=== PATIENT | male | born 1930 | race Caucasian/White ===

== ENCOUNTER 2016-05-07 14:06 | Inpatient (IN) | payer MEDICARE, OTHER ==
[2016-05-07] MEDS ORDERED: Polyethylene Glycol 3350 Powder 17 GM Packet PO PRN (15:35)
[2016-05-07] MEDS ORDERED: Acetaminophen 325 MG Tab PO PRN (15:35)
[2016-05-07] MEDS ORDERED: Acetaminophen/HYDROcodone 325-5 MG Tab PO PRN (15:35)
--- NOTE | 2016-05-07 15:59 | PCM.HP ---
H&P History of Present Illness - General Date of Service: 05/07/16 Admit Problem/Dx: Admission Diagnosis/Problem Admission Diagnosis/Problem Encephalopathy Source of Information: Patient, Family, Old records - History of Present Illness Initial Comments - Free Text/Narative: History of present illness: Patient admitted to swing bed today for continued therapy in anticipation of return to living at home with . Last week he developed bronchitis type illness. He was started on doxycycline Tessalon and dextromethorphan. After this he developed tremulousness in his face and jaw maybe little bit in his limbs. He was confused and had difficulty speaking. He presented to ER in [place]. He was sent on from there to [facility] for neurological evaluation. All of his testing was basically negative. No ischemic changes by MRI. 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 Notes his mental status has improved and is back to baseline. He still seemed a little bit weak with ambulation from being bedridden recently otherwise they think he's pretty close to being able to go back home. Past medical history: Coronary artery disease, glaucoma, osteoporosis, seizure disorder, depression, diabetes mellitus type 2, chronic kidney disease, pulmonary fibrosis, DO NOT RESUSCITATE. Allergies: Question dextromethorphan and Tessalon intolerance. GatiFloxin, penicillin, lisinopril. Medications: Loratadine, albuterol, Flonase, Keppra, Zocor, Fosamax, metformin, Cozaar, glaucoma eyedrops, Zoloft, Prozac, aspirin, Ativan. Social history: Nonsmoker, lives with , daughter also in town. Review of systems: He has no complaints currently, no fever no vomiting no headache no chest pain no weakness or numbness no speech difficulty, he's chronically hard of hearing, no abdominal pain, states she's passing stools and urine normally. Vital signs: Blood pressure 140/68 temperature 36.3 pulse 87 alert oriented hard of hearing male no acute distress. He can name the current president month and day. He has difficulty with the year. Cranial nerves II through XII aren't intact. Heart regular rate and rhythm rather frequent dropped beats. Lungs are clear to auscultation. Abdomen soft nontender. Extremities warm well perfused. No peripheral edema. Five out of five strength all extremities. Assessment and plan: Trembling, confusion, speech difficulty. No ischemic changes by MRI. A brief transient TIA ischemic event without tissue damage would be in differential, atypical seizure or post ictal changes would be in differential, idiopathic encephalitis related to medication or virus would be in differential, atypical dystonic-type drug reaction would be in differential, delirium related to some chronic dementia would be in differential. Family states she's currently completely at his neurologic baseline. Admit for physical and occupational therapy with plan on return to home environment. Continue Keppra seizure prophylaxis. Continue home cardiac medicines for vascular prophylaxis. DVT prophylaxis not indicated patient who is ambulating near his baseline. - Related Data Allergies/Adverse Reactions: Allergies Allergy/AdvReac Type Severity Reaction Status Date / Time dextromethorphan Allergy Other Verified 05/07/16 15:45 gatifloxacin Allergy Other Verified 05/07/16 15:45 guaifenesin Allergy Other Verified 05/07/16 15:45 lisinopril Allergy Other Verified 05/07/16 15:45 Penicillins Allergy Other Verified 05/07/16 15:45 Home Medications: Home Meds Albuterol Sulfate [Ventolin Hfa] 1 - 2 puff IH Q4H PRN 05/07/16 [History] Alendronate [Fosamax] 70 mg PO Q7D@0600 05/07/16 [History] Aspirin 325 mg PO DAILY 05/07/16 [History] Bimatoprost [LUMIGAN 0.01% Ophth Soln] 1 drop EYEBOTH BEDTIME 05/07/16 [History] Brinzolamide [Azopt 1% Ophth Susp] 1 drop EYELF BID 05/07/16 [History] Brinzolamide [Azopt 1% Ophth Susp] 1 drop EYERT TID 05/07/16 [History] Finasteride 5 mg PO DAILY 05/07/16 [History] Fluticasone Propionate [Flonase] 2 sprays NASBOTH DAILY 05/07/16 [History] LORazepam 0.5 mg PO DAILY PRN 05/07/16 [History] Loratadine 10 mg PO DAILY 05/07/16 [History] Losartan [Cozaar] 25 mg PO DAILY 05/07/16 [History] Sertraline [Zoloft] 100 mg PO DAILY 05/07/16 [History] Simvastatin [Zocor] 10 mg PO WITHDINNER 05/07/16 [History] levETIRAcetam [Levetiracetam] 750 mg PO BID 05/07/16 [History] metFORMIN HCl [Metformin HCl ER] 500 mg PO DAILY 05/07/16 [History] Past Medical History HEENT History: Reports: Glaucoma Cardiovascular History: Reports: Afib, CAD, High cholesterol, Hypertension, Stents Other Respiratory History: chronic calcified pulmonary granulomata Genitourinary History: Reports: BPH, Renal disease Neurological History: Reports: Seizure Psychiatric History: Reports: Dementia, Depression Endocrine/Metabolic History: Reports: Diabetes, type II - Infectious Disease History Infectious Disease History: Reports: None - Past Surgical History Cardiovascular Surgical History: Reports: Coronary artery stent Social & Family History - Family History Family Medical History: Noncontributory - Tobacco Use Smoking Status *Q: Never Smoker Second Hand Smoke Exposure: No - Caffeine Use Caffeine Use: Reports: Coffee - Recreational Drug Use Recreational Drug Use: No H&P Review of Systems - Review of Systems: Review Of Systems: See Below Exam - Exam Exam: See Below - Vital Signs Vital Signs: Last Vital Signs Temp 36.9 C 05/07/16 14:12 Pulse 119 H 05/07/16 14:12 Resp 20 05/07/16 14:12 BP 165/72 H 05/07/16 14:12 Pulse Ox 98 05/07/16 14:12 Weight: 74.843 kg *Q Meaningful Use (ADM) - VTE *Q VTE Criteria *Q: - Stroke *Q Stroke Criteria *Q: - AMI *Q AMI Criteria *Q: Problem List Initiated/Reviewed/Updated: Yes Orders Last 24hrs: Active Orders 24 hr Category Date Time Status Admission Status [Patient Status] [ADT] Routine ADT 05/07/16 14:06 Active Patient Status [ADT] Routine ADT 05/07/16 15:35 Ordered Ambulate [RC] ASDIRECTED Care 05/07/16 15:35 Ordered Oxygen Therapy [RC] PRN Care 05/07/16 15:35 Ordered Up With Assistance [RC] ASDIRECTED Care 05/07/16 15:35 Ordered VTE/DVT Education [RC] PER UNIT ROUTINE Care 05/07/16 15:35 Ordered Vital Signs [RC] PER UNIT ROUTINE Care 05/07/16 15:35 Ordered Consult to Oncology Social Work [CONS] Routine Cons 05/07/16 15:35 Ordered Consult to Speech Language Pathology [[employer]OR Evaluation Cons 05/07/16 12:28 Active and Treatment] [CONS] Routine OT Evaluation and Treatment [CONS] Routine Cons 05/07/16 12:27 Active PT Evaluation and Treatment [CONS] Routine Cons 05/07/16 12:27 Active Regular Diet [DIET] Diet 05/07/16 Dinner Active Regular Diet [DIET] Diet 05/07/16 Dinner Ordered CULTURE SPUTUM + SMEAR [RM] Routine Lab 05/07/16 15:41 Uncollected Acetaminophen [Tylenol] Med 05/07/16 15:35 Ordered 650 mg PO Q4H PRN Acetaminophen/HYDROcodone [[place] 325-5 MG] Med 05/07/16 15:35 Ordered 1 tab PO Q4H PRN Alendronate [Fosamax] Med 05/14/16 06:00 Ordered 70 mg PO Q7D@0600 Aspirin [Aspirin] Med 05/08/16 08:00 Ordered 325 mg PO DAILY Bimatoprost [LUMIGAN 0.01% Ophth Soln] Med 05/07/16 20:00 Ordered 1 drop EYEBOTH BEDTIME Brinzolamide [Azopt 1% Ophth Susp] Med 05/07/16 20:00 Ordered 1 drop EYELF BID Brinzolamide [Azopt 1% Ophth Susp] Med 05/07/16 20:00 Ordered 1 drop EYERT TID Finasteride [Proscar] Med 05/08/16 08:00 Ordered 5 mg PO DAILY Fluticasone Propionate [Flonase] Med 05/08/16 08:00 Ordered 2 sprays NASBOTH DAILY LORazepam [Ativan] Med 05/07/16 15:40 Ordered 0.5 mg PO DAILY PRN Loratadine [Claritin] Med 05/08/16 08:00 Ordered 10 mg PO DAILY Losartan [Cozaar] Med 05/08/16 08:00 Ordered 25 mg PO DAILY Polyethylene Glycol 3350 [MiraLAX] Med 05/07/16 15:35 Ordered 17 gm PO DAILY PRN Sertraline [Zoloft] Med 05/08/16 08:00 Ordered 100 mg PO DAILY Simvastatin [Zocor] Med 05/07/16 18:00 Ordered 10 mg PO WITHDINNER levETIRAcetam [Levetiracetam] Med 05/07/16 20:00 Ordered 750 mg PO BID metFORMIN HCl [Metformin HCl ER] Med 05/08/16 08:00 Ordered 500 mg PO DAILY Resuscitation Status Routine Resus Stat 05/07/16 15:35 Ordered Medication Orders Acetaminophen (Tylenol) 650 mg PO Q4H PRN PRN Reason: Pain (Mild 1-3)/fever Acetaminophen/Hydrocodone Bitart ([place] 325-5 Mg) 1 tab PO Q4H PRN PRN Reason: Pain (moderate 4-6) Alendronate Sodium (Fosamax) 70 mg PO Q7D@0600 [facility] Finasteride (Proscar) 5 mg PO DAILY [facility] Fluticasone Propionate (Flonase) gm NASBOTH DAILY [facility] Loratadine (Claritin) 10 mg PO DAILY [facility] Lorazepam (Ativan) 0.5 mg PO DAILY PRN PRN Reason: Anxiety Losartan Potassium (Cozaar) 25 mg PO DAILY [facility] Non-Formulary Medication (Aspirin [Aspirin]) 325 mg PO DAILY [facility] Non-Formulary Medication (Bimatoprost [Lumigan 0.01% Ophth Soln]) 1 drop EYEBOTH BEDTIME [facility] Non-Formulary Medication (Brinzolamide [Azopt 1% Ophth Susp]) 1 drop EYELF BID [facility] Non-Formulary Medication (Brinzolamide [Azopt 1% Ophth Susp]) 1 drop EYERT TID [facility] Non-Formulary Medication (Levetiracetam [Levetiracetam]) 750 mg PO BID [facility] Non-Formulary Medication (Metformin Hcl [Metformin Hcl Er]) 500 mg PO DAILY [facility] Polyethylene Glycol (Miralax) 17 gm PO DAILY PRN PRN Reason: Constipation Sertraline HCl (Zoloft) 100 mg PO DAILY [facility] Simvastatin (Zocor) 10 mg PO WITHKADI [facility]
[2016-05-07] MEDS: Simvastatin 10 MG Tab PO SCH (18:05)
[2016-05-07] MEDS: metFORMIN 500 MG Tab PO SCH (18:05)
[2016-05-07] MEDS: BRINZOLAMIDE EYERT SCH (20:41)
[2016-05-07] MEDS: levETIRAcetam 500 MG Tab PO SCH (20:41)
[2016-05-07] MEDS: LATANOPROST 0.005% EYEBOTH SCH (20:41)
[2016-05-07] MEDS: BRINZOLAMIDE EYELF SCH (20:51)
[2016-05-08] MEDS: Finasteride 5 MG Tab PO SCH (10:46)
[2016-05-08] MEDS: BRINZOLAMIDE EYERT SCH ×3 (10:46→20:11)
[2016-05-08] MEDS: Loratadine 10 MG Tab PO SCH (10:46)
[2016-05-08] MEDS: BRINZOLAMIDE EYELF SCH ×2 (10:46→20:10)
[2016-05-08] MEDS: FLUTICASONE PROPIONATE NASBOTH SCH (10:47)
[2016-05-08] MEDS: Sertraline 100 MG Tab PO SCH (10:47)
[2016-05-08] MEDS: levETIRAcetam 500 MG Tab PO SCH ×2 (10:47→20:09)
[2016-05-08] MEDS: metFORMIN 500 MG Tab PO SCH ×2 (10:47→17:53)
[2016-05-08] MEDS: Aspirin 325 MG Tab.EC PO SCH (10:47)
[2016-05-08] MEDS: Losartan 25 MG Tab PO SCH (10:47)
[2016-05-08] MEDS: Simvastatin 10 MG Tab PO SCH (17:53)
[2016-05-08] MEDS: LATANOPROST 0.005% EYEBOTH SCH (20:12)
[2016-05-09] MEDS: BRINZOLAMIDE EYERT SCH ×3 (08:08→19:46)
[2016-05-09] MEDS: Loratadine 10 MG Tab PO SCH (08:08)
[2016-05-09] MEDS: BRINZOLAMIDE EYELF SCH ×2 (08:08→19:46)
[2016-05-09] MEDS: Losartan 25 MG Tab PO SCH (08:08)
[2016-05-09] MEDS: Finasteride 5 MG Tab PO SCH (08:09)
[2016-05-09] MEDS: metFORMIN 500 MG Tab PO SCH ×2 (08:09→17:27)
[2016-05-09] MEDS: levETIRAcetam 500 MG Tab PO SCH ×2 (08:10→19:46)
[2016-05-09] MEDS: Sertraline 100 MG Tab PO SCH (08:10)
[2016-05-09] MEDS: Aspirin 325 MG Tab.EC PO SCH (08:10)
[2016-05-09] MEDS: FLUTICASONE PROPIONATE NASBOTH SCH (08:10)
[2016-05-09] MEDS: Simvastatin 10 MG Tab PO SCH (17:27)
[2016-05-09] MEDS: LATANOPROST 0.005% EYEBOTH SCH (19:49)
[2016-05-10] MEDS: FLUTICASONE PROPIONATE NASBOTH SCH (07:38)
[2016-05-10] MEDS: BRINZOLAMIDE EYELF SCH ×2 (07:39→19:19)
[2016-05-10] MEDS: BRINZOLAMIDE EYERT SCH ×3 (07:40→19:19)
[2016-05-10] MEDS: levETIRAcetam 500 MG Tab PO SCH ×2 (07:41→19:21)
[2016-05-10] MEDS: Losartan 25 MG Tab PO SCH (07:41)
[2016-05-10] MEDS: Loratadine 10 MG Tab PO SCH (07:42)
[2016-05-10] MEDS: Aspirin 325 MG Tab.EC PO SCH (07:42)
[2016-05-10] MEDS: Sertraline 100 MG Tab PO SCH (07:42)
[2016-05-10] MEDS: Finasteride 5 MG Tab PO SCH (07:42)
[2016-05-10] MEDS: metFORMIN 500 MG Tab PO SCH ×2 (07:42→17:33)
[2016-05-10] MEDS: LORazepam 0.5 MG Tab PO PRN (08:04)
[2016-05-10] MEDS: Simvastatin 10 MG Tab PO SCH (17:33)
[2016-05-10] MEDS: LATANOPROST 0.005% EYEBOTH SCH (19:23)
[2016-05-11] MEDS: metFORMIN 500 MG Tab PO SCH ×2 (09:45→17:32)
[2016-05-11] MEDS: FLUTICASONE PROPIONATE NASBOTH SCH (09:45)
[2016-05-11] MEDS: BRINZOLAMIDE EYERT SCH ×3 (09:45→19:59)
[2016-05-11] MEDS: Sertraline 100 MG Tab PO SCH (09:45)
[2016-05-11] MEDS: levETIRAcetam 500 MG Tab PO SCH ×2 (09:46→20:00)
[2016-05-11] MEDS: LORazepam 0.5 MG Tab PO PRN (09:46)
[2016-05-11] MEDS: Finasteride 5 MG Tab PO SCH (09:47)
[2016-05-11] MEDS: Aspirin 325 MG Tab.EC PO SCH (09:47)
[2016-05-11] MEDS: Losartan 25 MG Tab PO SCH (09:47)
[2016-05-11] MEDS: Loratadine 10 MG Tab PO SCH (09:47)
[2016-05-11] MEDS: BRINZOLAMIDE EYELF SCH ×2 (09:47→20:00)
[2016-05-11] MEDS: Simvastatin 10 MG Tab PO SCH (17:32)
[2016-05-11] MEDS: LATANOPROST 0.005% EYEBOTH SCH (20:01)
[2016-05-12] MEDS: FLUTICASONE PROPIONATE NASBOTH SCH (08:39)
[2016-05-12] MEDS: BRINZOLAMIDE EYERT SCH ×3 (08:39→20:20)
[2016-05-12] MEDS: Loratadine 10 MG Tab PO SCH (08:40)
[2016-05-12] MEDS: Aspirin 325 MG Tab.EC PO SCH (08:40)
[2016-05-12] MEDS: levETIRAcetam 500 MG Tab PO SCH ×2 (08:40→20:21)
[2016-05-12] MEDS: Losartan 25 MG Tab PO SCH (08:40)
[2016-05-12] MEDS: Sertraline 100 MG Tab PO SCH (08:41)
[2016-05-12] MEDS: Finasteride 5 MG Tab PO SCH (08:41)
[2016-05-12] MEDS: metFORMIN 500 MG Tab PO SCH ×2 (08:41→17:42)
[2016-05-12] MEDS: BRINZOLAMIDE EYELF SCH ×2 (08:42→20:20)
[2016-05-12] MEDS: Simvastatin 10 MG Tab PO SCH (17:42)
[2016-05-12] MEDS: LATANOPROST 0.005% EYEBOTH SCH (20:20)
[2016-05-13 06:08] VITALS: BP 132/78
[2016-05-13] MEDS: metFORMIN 500 MG Tab PO SCH (08:56)
[2016-05-13] MEDS: BRINZOLAMIDE EYELF SCH (08:56)
[2016-05-13] MEDS: BRINZOLAMIDE EYERT SCH ×2 (08:56→13:10)
[2016-05-13] MEDS: FLUTICASONE PROPIONATE NASBOTH SCH (08:56)
[2016-05-13] MEDS: Finasteride 5 MG Tab PO SCH (08:57)
[2016-05-13] MEDS: Loratadine 10 MG Tab PO SCH (08:57)
[2016-05-13] MEDS: levETIRAcetam 500 MG Tab PO SCH (08:57)
[2016-05-13] MEDS: Losartan 25 MG Tab PO SCH (08:57)
[2016-05-13] MEDS: Aspirin 325 MG Tab.EC PO SCH (08:58)
[2016-05-13] MEDS: Sertraline 100 MG Tab PO SCH (08:58)
--- NOTE | 2016-05-13 09:54 | PCM.DCSUM1 ---
Discharge Summary - Discharge Data Discharge Date: 05/13/16 Discharge Disposition: Home, Self-Care 01 Condition: Fair - Patient Summary/Data Consults: Consultations 05/07/16 12:27 OT Evaluation and Treatment [CONS] Routine PT Evaluation and Treatment [CONS] Routine 05/07/16 12:28 Consult to Speech Language Pathology [FOIL SPINNER Evaluation and Treatment] [CONS] Routine 05/07/16 15:35 Consult to Taker Off Drying Kiln [CONS] Routine - Discharge Plan Home Medications: Home Meds Albuterol Sulfate [Ventolin Hfa] 1 - 2 puff IH Q4H PRN 05/07/16 [History] Alendronate [Fosamax] 70 mg PO Q7D@0600 05/07/16 [History] Aspirin 325 mg PO DAILY 05/07/16 [History] Bimatoprost [LUMIGAN 0.01% Ophth Soln] 1 drop EYEBOTH BEDTIME 05/07/16 [History] Brinzolamide [Azopt 1% Ophth Susp] 1 drop EYELF BID 05/07/16 [History] Brinzolamide [Azopt 1% Ophth Susp] 1 drop EYERT TID 05/07/16 [History] Finasteride 5 mg PO DAILY 05/07/16 [History] Fluticasone Propionate [Flonase] 2 sprays NASBOTH DAILY 05/07/16 [History] LORazepam 0.5 mg PO DAILY PRN 05/07/16 [History] Loratadine 10 mg PO DAILY 05/07/16 [History] Losartan [Cozaar] 25 mg PO DAILY 05/07/16 [History] Sertraline [Zoloft] 100 mg PO DAILY 05/07/16 [History] Simvastatin [Zocor] 10 mg PO WITHDINNER 05/07/16 [History] levETIRAcetam [Levetiracetam] 750 mg PO BID 05/07/16 [History] metFORMIN HCl [Metformin HCl ER] 500 mg PO DAILY 05/07/16 [History] Alendronate [Fosamax] 70 mg PO Q7D@0600 tablet 05/13/16 [Rx] Polyethylene Glycol 3350 [MiraLAX] 17 gm PO DAILY PRN #0 packet 05/13/16 [Rx] - Discharge Summary/Plan Comment DC Time >30 min.: No Discharge Summary/Plan Comment: Patient was admitted less than a week ago for swing bed admission and status post hosp at [facility] for encephalopathy NOS, possible adverse drug reaction to antitussives. His neurologic symptoms had resolved by discharge there. They recommended some physical therapy here so could return to home environment. Family and PT feels he is completely back at baseline. Still has some mild confusion likely from baseline dementia and being hard of hearing. No other issues identified here. Return home under care of and daughter who lives nearby. Follow-up with primary next week. Resume previous home medications. Follow-up with neurology when necessary given past seizure and memory issues. - Patient Data Vitals - Most Recent: Last Vital Signs Temp 36.4 C 05/13/16 06:00 Pulse 88 05/13/16 06:00 Resp 18 05/13/16 06:00 BP 132/78 05/13/16 08:57 Pulse Ox 98 05/13/16 06:00 Weight - Most Recent: 74.843 kg Med Orders - Current: Current Medications Acetaminophen (Tylenol) 650 mg PO Q4H PRN PRN Reason: Pain (Mild 1-3)/fever Acetaminophen/Hydrocodone Bitart ([place] 325-5 Mg) 1 tab PO Q4H PRN PRN Reason: Pain (moderate 4-6) Alendronate Sodium (Fosamax) 70 mg PO Q7D@0600 [facility] Aspirin (Ecotrin) 325 mg PO DAILY [facility] Last Admin: 05/13/16 08:58 Dose: 325 mg Finasteride (Proscar) 5 mg PO DAILY [facility] Last Admin: 05/13/16 08:57 Dose: 5 mg Fluticasone Propionate (Flonase) 0 gm NASBOTH DAILY [facility] Last Admin: 05/13/16 08:56 Dose: 2 spray Latanoprost (Xalatan 0.005% Ophth Soln) 0 ml EYEBOTH BEDTIME [facility] Last Admin: 05/12/16 20:20 Dose: 1 drop Levetiracetam (Keppra) 750 mg PO BID [facility] Last Admin: 05/13/16 08:57 Dose: 750 mg Loratadine (Claritin) 10 mg PO DAILY [facility] Last Admin: 05/13/16 08:57 Dose: 10 mg Lorazepam (Ativan) 0.5 mg PO DAILY PRN PRN Reason: Anxiety Last Admin: 05/11/16 09:46 Dose: 0.5 mg Losartan Potassium (Cozaar) 25 mg PO DAILY [facility] Last Admin: 05/13/16 08:57 Dose: 25 mg Metformin HCl (Glucophage) 250 mg PO BIDMEALS [facility] Last Admin: 05/13/16 08:56 Dose: 250 mg Brinzolamide [Azopt 1% Ophth Susp] 1 Drop *Own Med* 1 drop EYELF BID [facility] Last Admin: 05/13/16 08:56 Dose: 1 drop Brinzolamide [Azopt 1% Ophth Susp] 1 Drop *Own Med* 1 drop EYERT TID [facility] Last Admin: 05/13/16 08:56 Dose: 1 drop Polyethylene Glycol (Miralax) 17 gm PO DAILY PRN PRN Reason: Constipation Sertraline HCl (Zoloft) 100 mg PO DAILY [facility] Last Admin: 05/13/16 08:58 Dose: 100 mg Simvastatin (Zocor) 10 mg PO WITHDINNER [facility] Last Admin: 05/12/16 17:42 Dose: 10 mg *Q Meaningful Use (DIS) - VTE *Q VTE Criteria *Q: - Stroke *Q Stroke Criteria *Q: - AMI *Q AMI Criteria *Q:
[2016-05-14] MEDS ORDERED: Alendronate 70 MG Tab PO SCH (06:00)
== END 2016-05-13 15:30 | disposition home or self-care (01) | DRG 72 ==
LOC: VM.MS 14:06
PROVIDERS: ADMIT Family Medicine; ATTEND Family Medicine
DX: G93.40 Encephalopathy, unspecified (principal); Z66 Do not resuscitate; I25.10 Atherosclerotic heart disease of native coronary artery without angina pectoris; H40.9 Unspecified glaucoma; M81.0 Age-related osteoporosis without current pathological fracture; G40.909 Epilepsy, unspecified, not intractable, without status epilepticus; F32.9 Major depressive disorder, single episode, unspecified; Z79.84 Long term (current) use of oral hypoglycemic drugs; Z88.0 Allergy status to penicillin; Z88.8 Allergy status to other drugs, medicaments and biological substances; E11.22 Type 2 diabetes mellitus with diabetic chronic kidney disease; N18.9 Chronic kidney disease, unspecified; J84.10 Pulmonary fibrosis, unspecified; H91.90 Unspecified hearing loss, unspecified ear; Z95.5 Presence of coronary angioplasty implant and graft; N40.0 Benign prostatic hyperplasia without lower urinary tract symptoms; F03.90 Unspecified dementia, unspecified severity, without behavioral disturbance, psychotic disturbance, mood disturbance, and anxiety
CPT/HCPCS: 87205; 97110-GP; 97116-GP; 97161-GP; 97165-GO; 97530-GP; A9270-GY

== ENCOUNTER 2016-10-31 00:01 | Emergency (ER) | payer MEDICARE, OTHER ==
--- NOTE | 2016-10-31 00:54 | EDM.PDOC ---
ED HPI GENERAL MEDICAL PROBLEM - General Chief Complaint: Genitourinary Problem Stated Complaint: Keita catheter not draining Time Seen by Provider: 10/31/16 00:05 Source of Information: Reports: EMS, Correction Records History Limitations: Reports: Altered Mental Status - History of Present Illness INITIAL COMMENTS - FREE TEXT/NARRATIVE: Patient here for non draining keita catheter. long-term states that they have orders not to touch the catheter from urology. Onset: Today, Sudden Location: Reports: Abdomen Severity: Moderate - Related Data Allergies Allergy/AdvReac Type Severity Reaction Status Date / Time dextromethorphan Allergy Other Verified 05/07/16 15:45 gatifloxacin Allergy Other Verified 05/07/16 15:45 guaifenesin Allergy Other Verified 05/07/16 15:45 lisinopril Allergy Other Verified 05/07/16 15:45 Penicillins Allergy Other Verified 05/07/16 15:45 Home Meds: Home Meds Albuterol Sulfate [Ventolin Hfa] 1 - 2 puff IH Q4H PRN 05/07/16 [History] Alendronate [Fosamax] 70 mg PO Q7D@0600 05/07/16 [History] Aspirin 325 mg PO DAILY 05/07/16 [History] Bimatoprost [LUMIGAN 0.01% Ophth Soln] 1 drop EYEBOTH BEDTIME 05/07/16 [History] Brinzolamide [Azopt 1% Ophth Susp] 1 drop EYELF BID 05/07/16 [History] Brinzolamide [Azopt 1% Ophth Susp] 1 drop EYERT TID 05/07/16 [History] Finasteride 5 mg PO DAILY 05/07/16 [History] Fluticasone Propionate [Flonase] 2 sprays NASBOTH DAILY 05/07/16 [History] LORazepam 0.5 mg PO DAILY PRN 05/07/16 [History] Loratadine 10 mg PO DAILY 05/07/16 [History] Losartan [Cozaar] 25 mg PO DAILY 05/07/16 [History] Sertraline [Zoloft] 100 mg PO DAILY 05/07/16 [History] Simvastatin [Zocor] 10 mg PO WITHDINNER 05/07/16 [History] levETIRAcetam [Levetiracetam] 750 mg PO BID 05/07/16 [History] metFORMIN HCl [Metformin HCl ER] 500 mg PO DAILY 05/07/16 [History] Alendronate [Fosamax] 70 mg PO Q7D@0600 tablet 05/13/16 [Rx] Polyethylene Glycol 3350 [MiraLAX] 17 gm PO DAILY PRN #0 packet 05/13/16 [Rx] Past Medical History HEENT History: Reports: Glaucoma Cardiovascular History: Reports: Afib, CAD, High Cholesterol, Hypertension, Stents Other Respiratory History: chronic calcified pulmonary granulomata Genitourinary History: Reports: BPH, Renal Disease Neurological History: Reports: Seizure Psychiatric History: Reports: Dementia, Depression Endocrine/Metabolic History: Reports: Diabetes, Type II - Infectious Disease History Infectious Disease History: Reports: None - Past Surgical History Cardiovascular Surgical History: Reports: Coronary Artery Stent Social & Family History - Family History Family Medical History: Noncontributory - Tobacco Use Smoking Status *Q: Never Smoker Second Hand Smoke Exposure: No - Caffeine Use Caffeine Use: Reports: Coffee - Recreational Drug Use Recreational Drug Use: No ED ROS GENERAL - Review of Systems Review Of Systems: Unable To Obtain ED EXAM, RENAL/ - Physical Exam Exam: See Below Exam Limited By: Altered Mental Status (dementia) General Appearance: Alert, WD/WN, Moderate Distress Eye Exam: Bilateral Eye: EOMI Respiratory/Chest: No Respiratory Distress, Lungs Clear, Normal Breath Sounds, No Accessory Muscle Use Cardiovascular: Normal Peripheral Pulses, Regular Rate, Rhythm GI/Abdominal: Rigid, Tender (lower mid abdomen/pelvis region), Abnormal Bowel Sounds (hypoactive) Extremities: Normal Inspection, Normal Range of Motion, Normal Capillary Refill Neurological: Alert Departure - Departure Time of Disposition: 01:00 Disposition: DC/Tfer to [facility] 03 Condition: Good Clinical Impression: Hematuria, Complication, blocked Keita catheter - Discharge Information Instructions: Keita Catheter Care, Adult, [id number] Forms: ED Department Discharge Additional Instructions: His catheter does need to be flushed every 12 hours to prevent blood clots from clogging the keita catheter. Please do this or this will continue to be problematic. Attend his follow up appointments as scheduled. Call with any questions or concerns.
[2016-10-31 03:16] VITALS: BP 143/75
== END 2016-10-31 01:10 ==
LOC: VM.ED 00:01
DX: T83.098A Other mechanical complication of other urinary catheter, initial encounter (principal); R31.9 Hematuria, unspecified; I48.91 Unspecified atrial fibrillation; I25.10 Atherosclerotic heart disease of native coronary artery without angina pectoris; F03.90 Unspecified dementia, unspecified severity, without behavioral disturbance, psychotic disturbance, mood disturbance, and anxiety; E78.00 Pure hypercholesterolemia, unspecified; E11.9 Type 2 diabetes mellitus without complications; F32.9 Major depressive disorder, single episode, unspecified; I10 Essential (primary) hypertension; Z88.1 Allergy status to other antibiotic agents; Z88.0 Allergy status to penicillin; Z88.8 Allergy status to other drugs, medicaments and biological substances; Z79.82 Long term (current) use of aspirin; Z79.899 Other long term (current) drug therapy; Z79.84 Long term (current) use of oral hypoglycemic drugs; Z95.5 Presence of coronary angioplasty implant and graft
CPT/HCPCS: 51700; 51798; 99284-GF; 99285

== ENCOUNTER 2016-11-09 03:21 | Emergency (ER) | payer MEDICARE, OTHER ==
[2016-11-09] MEDS ORDERED: Diazepam 5 MG Tab PO ONE (03:33)
[2016-11-09 04:35] VITALS: BP 149/92
[2016-11-09 04:37] LABS: CHLORIDE,CL 107 mmol/L (98-107); SODIUM,NA 141 mmol/L (136-145)
--- NOTE | 2016-11-09 05:15 | ER ---
Date of Service: 11/09/2016 SUBJECTIVE: Scot presents to the emergency room with complaints of cough and dyspnea. The patient states that he has been experiencing cough, fever and chest congestion for approximately the past 3 days. The patient states that his son recently flew here from [place] and then states that he has been ill as well with similar symptoms. He states that he has been experiencing again this cough and chest congestion. He states that he has also been experiencing increased dyspnea and work of breathing over the past 12 to 24 hours. The patient states that the cough is nonproductive. 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 He does complain of some lower chest discomfort, but states that the discomfort is worse with deep breathing. PAST MEDICAL HISTORY: Denies. MEDICATIONS: Cetirizine. ALLERGIES: NKDA. REVIEW OF SYSTEMS: General: Positive for fever and chills. HEENT: Positive for sinus congestion. Denies any sore throat. Respiratory: Positive for respirophasic chest discomfort, dyspnea and increased work of breathing. Cardiac: Denies any substernal chest pain. GI: No nausea, vomiting or diarrhea. No melena, hematochezia or hematemesis. : Denies any dysuria. Musculoskeletal: No myalgias or arthralgias. Neurologic: No fainting, blackouts or lightheadedness. PHYSICAL EXAMINATION: General: This is an 86-year-old male patient, who is in moderate amount of respiratory distress. Vital Signs: Initially, blood pressure is 109/51, heart rate 123, temperature is 38.4, O2 saturation is 86% on room air, respiratory rate is 24. Skin: Warm, pink, and dry. HEENT: Head is normocephalic, atraumatic. Eyes, PERRLA. Extraocular movements intact. Nose, he does have significant amount of sinus congestion. Ears, TMs are clear. Mouth, oral mucosa is dry. No erythema or exudate noted in the hypopharynx. Neck: Supple without masses. There is no lymphadenopathy. Lungs: Diminished throughout. Heart: Regular rate and rhythm. Abdomen: Soft and nontender. There is no hepatosplenomegaly noted. There are no masses noted. Extremities: Without edema. Neurologic: The patient is alert, oriented and answers all questions appropriately. His speech is fluent. His gait is within normal limits. LABORATORY DATA: WBC 6.0, hemoglobin 14.4, platelets are 148. Coags: PT is 11.1, INR is 1.0. D-dimer is positive at 1.087. ABG shows a pH of 7.366, pCO2 of 38, pO2 of 53, bicarb 22. Chemistry: Sodium is 141, potassium is 3.9, chloride is 105, bicarb is 27, BUN is 24, creatinine is 1.4, creatinine clearance is 41.09. GFR is 48. Glucose is 155, lactic acid 4.1, calcium is 8.5, corrected calcium is 8.98, total bilirubin is 1.1, AST is 53, ALT is 32, alkaline phosphatase is 82, CK is 81, CK-MB is 0.8. Troponin is less than 0.017. C-reactive protein is 2.4. ProBNP is within normal range at 329. Total protein is 8.2. IMAGING STUDIES: A 12-lead EKG shows a sinus rhythm without any acute ST or T- wave changes. Chest x-ray revealed what appeared to be the start of a right middle lobe infiltrate. I subsequently did do a CT angiogram of the patient's chest due to his positive D-dimer and respirophasic chest discomfort and hypoxia and was found not to have any acute pulmonary embolism. EMERGENCY ROOM COURSE: IV access was established. The patient was given DuoNeb breathing treatment and IV access was established. He was given approximately at 1500 mL of fluid prior to admission. He was given Solu-Medrol 125 mg IV. He was given Rocephin 2 g IV and azithromycin 500 mg IV in the ER. He was complaining of some nausea and was given Zofran 4 mg IV as well. At time of admission, the patient stated that he was feeling much improved. He remained stable under my care in the emergency room. ASSESSMENT: Community-acquired pneumonia. PLAN: The patient will be admitted on observation status. We will repeat his lactic acid and blood gases. We will also trend his troponin. We will continue with IV fluids at 250 an hour as he does appear to be significantly dehydrated. The patient identifies himself as a code level 1 and does wish to be intubated in the event that he experiences respiratory failure. All questions were answered. MWK: 11/09/2016 04:25:19 MODL: 11/09/2016 05:09:35 /[id number]
--- NOTE | 2016-11-09 08:14 | ER ---
Date of Service: 11/09/2016 SUBJECTIVE: The staff states that the patient has been experiencing involuntary movements that they think is secondary to seizure activity. manager call physician was consulted and the patient was subsequently sent to the emergency room for evaluation and treatment. The staff states that the patient has been experiencing intermittent jerking motions to both the upper and lower extremities. He has been followed by Neurology and has been admitted to the half-way for recurrent complex partial seizure activity. He is currently on Keppra. The staff at the half-way states that he has always been conscious during this involuntary movement. He has not been experiencing any fever or chills. Staff states that he has not had any recent head trauma. PAST MEDICAL HISTORY: 1. Complex partial seizure disorder. 2. Coronary artery disease. 3. Status post angioplasty and coronary artery stenting. 4. History of atrial fibrillation. 5. Dyslipidemia. 6. Hypertension. 7. Pulmonary fibrosis. 8. BPH. 9. Chronic kidney disease. 10.Osteoporosis. 11.Type 2 diabetes mellitus. 12.Depression. 13.Dementia. 14.Glaucoma. 15.Parkinson disease. 16.Osteoporosis. MEDICATIONS: 1. Carvedilol. 2. Simvastatin. 3. Metformin. 4. Keppra. 5. Zoloft. 6. Flonase. 7. Finasteride. 8. Cipro. 9. Carbidopa/levodopa. 10.Bisacodyl. 11.Azopt. 12.Lumigan. 13.Aspirin. 14.Fosamax. ALLERGIES: To dextromethorphan, gatifloxacin, lisinopril, and penicillin. REVIEW OF SYSTEMS: Denies any fever, chills, head trauma, nausea, vomiting, diarrhea, chest pain, or shortness of breath. Again complains only of intermittent upper and lower extremity jerking. PHYSICAL EXAMINATION: General: This is an 86-year-old male patient, who is in no acute distress. Vital Signs: Blood pressure initially 161/92, recheck is 149/92, heart rate is 82, temp is 36.6, respiratory rate 18, O2 saturations 96%. Skin: Warm, pink, and dry. HEENT: Head is normocephalic, atraumatic. Eyes, PERRLA. Extraocular movements are intact. Mouth, oral mucosa is moist. Lungs: Clear to auscultation. Heart: Regular rate and rhythm. Abdomen: Soft, nontender. There is no hepatosplenomegaly or masses noted. Extremities: Without edema. Neurologic: The patient is alert, does experience occasional myoclonic jerking but no seizure activity. He was not incontinent of urine. He has 4/5 strength in both his upper and lower extremities. Cranial nerves 2 through 12 are intact. LABORATORY DATA: WBC is 7.9, hemoglobin is 12.6, platelets are 212. Chemistry, sodium is 141, potassium is 4.0, chloride is 107, bicarb is 27, BUN is 42, creatinine is 1.4. GFR is 48, glucose is 117, calcium is 9.16, phosphorus is 3.2, magnesium is 1.8. Total bilirubin is 0.3, AST is 12, ALT is 9, alkaline phosphatase is 75, total protein is 6.2, TSH is 1.121. EMERGENCY ROOM COURSE: The patient was given Valium 10 mg p.o. To note, a Keppra level was obtained as well which is a send out reference lab. ASSESSMENT: Myoclonus. PLAN: I did start the patient on Valium 5 mg 3 times per day. There are numerous possible causes for the patient's myoclonus including his Parkinson's disease or secondary to his seizure activity. We will have him follow up in the clinic in the next 5 to 7 days. I did also prescribe some Valium 10 mg to be given intramuscularly should he develop seizure activity that lasts longer than 30 minutes. All questions were answered. MWK: 11/09/2016 05:37:22 MODL: 11/09/2016 06:51:25 /[id number]
== END 2016-11-09 05:30 | disposition home or self-care (01) ==
LOC: VM.ED 03:21
DX: G25.3 Myoclonus (principal); I25.10 Atherosclerotic heart disease of native coronary artery without angina pectoris; I48.91 Unspecified atrial fibrillation; E78.5 Hyperlipidemia, unspecified; I12.9 Hypertensive chronic kidney disease with stage 1 through stage 4 chronic kidney disease, or unspecified chronic kidney disease; E11.22 Type 2 diabetes mellitus with diabetic chronic kidney disease; N18.9 Chronic kidney disease, unspecified; F32.9 Major depressive disorder, single episode, unspecified; M81.0 Age-related osteoporosis without current pathological fracture; G20 Parkinson's disease; F02.80 Dementia in other diseases classified elsewhere, unspecified severity, without behavioral disturbance, psychotic disturbance, mood disturbance, and anxiety; Z79.84 Long term (current) use of oral hypoglycemic drugs; Z95.5 Presence of coronary angioplasty implant and graft; Z79.82 Long term (current) use of aspirin; Z79.899 Other long term (current) drug therapy; Z88.0 Allergy status to penicillin; Z88.8 Allergy status to other drugs, medicaments and biological substances; Z88.1 Allergy status to other antibiotic agents
CPT/HCPCS: 36415; 80053; 80177; 83735; 84100; 84443; 85025; 99284; A9270